=== PATIENT | male | born 1975 | race Caucasian/White ===

== ENCOUNTER → 2017-08-08 | Outpatient (CLI) | payer OTHER | LOC: BMCIMAGING 13:08 | PROVIDERS: ATTEND Podiatrist Foot & Ankle Surgery | DX: M77.32 Calcaneal spur, left foot (principal) ==

== ENCOUNTER → 2017-09-16 | Outpatient (CLI) | payer OTHER | LOC: BMCIMAGING 09:09 | PROVIDERS: ATTEND Emergency Medicine | DX: J40 Bronchitis, not specified as acute or chronic (principal); Z87.891 Personal history of nicotine dependence ==